=== PATIENT | male | born 1990 | race Caucasian/White ===

== ENCOUNTER → 2022-01-11 | Outpatient (REF) | payer OTHER | LOC: M CARPUL 08:24 → EDSTATUS 08:30 | PROVIDERS: ATTEND Internal Medicine | DX: Z13.6 Encounter for screening for cardiovascular disorders (principal) ==

== ENCOUNTER → 2022-02-02 | Outpatient (REF) | LOC: M PLAIMG 10:55 | PROVIDERS: ATTEND Internal Medicine | DX: R06.02 Shortness of breath (principal); R52 Pain, unspecified; M47.816 Spondylosis without myelopathy or radiculopathy, lumbar region; M47.817 Spondylosis without myelopathy or radiculopathy, lumbosacral region ==